=== PATIENT | male | born 1985 | race Caucasian/White ===

== ENCOUNTER 2021-05-21 11:38 | Emergency (ER) | payer OTHER, BC ==
[~2021-05-21] VITALS: Ht 157.5 cm; Wt 93.9 kg
[2021-05-21 11:58] VITALS: BP 122/86
[2021-05-21] MEDS ORDERED: FLEXERIL PO (13:14)
[2021-05-21] MEDS ORDERED: NAPROSYN500 MG PO (13:14)
== END 2021-05-21 13:23 | disposition home or self-care (01) ==
LOC: M.ERS 11:38
DX: S63.591A Other specified sprain of right wrist, initial encounter (principal); Z88.0 Allergy status to penicillin; W01.0XXA Fall on same level from slipping, tripping and stumbling without subsequent striking against object, initial encounter; Y93.89 Activity, other specified; Y92.89 Other specified places as the place of occurrence of the external cause; Y99.8 Other external cause status